=== PATIENT | male | born 1980 | race American Indian/Alaskan Native ===

== ENCOUNTER 2019-05-10 07:40 | Emergency (ER) | payer SELFPAY ==
[2019-05-10 07:46] VITALS: BP 140/84
== END 2019-05-10 09:47 | disposition left against medical advice (07) ==
LOC: ED 07:40
DX: R10.9 Unspecified abdominal pain (principal); Z53.21 Procedure and treatment not carried out due to patient leaving prior to being seen by health care provider

== ENCOUNTER 2019-12-06 07:41 | Emergency (ER) | payer SELFPAY ==
[2019-12-06 07:58] VITALS: BP 153/103
--- NOTE | 2019-12-06 08:30 | Emergency Department Report ---
ED General Adult HPI - General Chief complaint: Dental/Oral Stated complaint: TOP TOOTH PAINFUL Time Seen by Provider: 12/06/19 08:15 Source: patient Mode of arrival: Ambulatory Limitations: No Limitations - History of Present Illness Initial comments: 38-year-old -[place] male patient without past medical history presents with complaints of upper and lower dental pain x 3 days. Patient states pain began after wearing partial dentures. He rates his pain as a 10/10 in severity and states it has been constant and worsening since the onset. He denies any swelling of the face, difficulty swallowing, difficulty opening his jaw, fever, or drooling. He reports he is not currently following with a dental specialist and he had his dentures made at a cosmetic facility. - Related Data Previous Rx's Medication Instructions Recorded Last Taken Type Cyclobenzaprine [Flexeril] 10 mg PO Q8HR PRN #20 tablet 12/14/12 Unknown Rx Ibuprofen [Motrin 800 MG tab] 800 mg PO TID PRN #60 tablet 12/14/12 Unknown Rx HYDROcodone/APAP 5-325 [[place] 1 each PO Q6HR PRN #20 tablet 09/09/14 Unknown Rx 5/325] methOCARBAMOL [Robaxin] 750 mg PO Q8H PRN #21 tablet 09/09/14 Unknown Rx Acetaminophen/Codeine [Tylenol 1 tab PO Q8H PRN #6 tab 12/06/19 Unknown Rx /Codeine # 3 tab] Amoxicillin [Trimox CAP] 500 mg PO Q8H 10 Days #30 capsule 12/06/19 Unknown Rx Ibuprofen [Motrin 800 MG tab] 800 mg PO Q8HR PRN #21 tablet 12/06/19 Unknown Rx Prednisone [predniSONE 5 mg (6-Day 5 mg PO .TAPER #1 tab.ds.pk 12/06/19 Unknown Rx Pack, 21 Tabs)] Allergies Allergy/AdvReac Type Severity Reaction Status Date / Time tramadol Allergy Dizziness Verified 12/14/12 20:38 ED Review of Systems ROS: Stated complaint: TOP TOOTH PAINFUL Other details as noted in HPI Constitutional: denies: chills, diaphoresis, fever, malaise, weakness ENT: dental pain. denies: ear pain, throat pain Respiratory: denies: cough, shortness of breath Gastrointestinal: denies: nausea, vomiting Skin: denies: rash, lesions Neurological: headache. denies: numbness, paresthesias ED Past Medical Hx - Past Medical History Previous Medical History?: No - Surgical History Past Surgical History?: No - Social History Smoking Status: Never Smoker - Medications Home Medications: Home Medications Medication Instructions Recorded Confirmed Last Taken Type Cyclobenzaprine [Flexeril] 10 mg PO Q8HR PRN #20 tablet 12/14/12 Unknown Rx Ibuprofen [Motrin 800 MG tab] 800 mg PO TID PRN #60 tablet 12/14/12 Unknown Rx HYDROcodone/APAP 5-325 [[place] 1 each PO Q6HR PRN #20 tablet 09/09/14 Unknown Rx 5/325] methOCARBAMOL [Robaxin] 750 mg PO Q8H PRN #21 tablet 09/09/14 Unknown Rx Acetaminophen/Codeine [Tylenol 1 tab PO Q8H PRN #6 tab 12/06/19 Unknown Rx /Codeine # 3 tab] Amoxicillin [Trimox CAP] 500 mg PO Q8H 10 Days #30 capsule 12/06/19 Unknown Rx Ibuprofen [Motrin 800 MG tab] 800 mg PO Q8HR PRN #21 tablet 12/06/19 Unknown Rx Prednisone [predniSONE 5 mg (6-Day 5 mg PO .TAPER #1 tab.ds.pk 12/06/19 Unknown Rx Pack, 21 Tabs)] ED Physical Exam - General Limitations: No Limitations General appearance: alert, in no apparent distress, obese - Head Head exam: Present: atraumatic, normocephalic - Eye Eye exam: Present: normal appearance. Absent: scleral icterus - Expanded ENT Exam Expanded Mouth exam: Present: tongue normal. Absent: drooling, trismus, muffled voice Teeth exam: Present: dental caries, fractured tooth # (#8), dental tenderness #, gingival enlargement (There is erythema and mild swelling noted to the upper and lower frontal portions of the gums with mild bleeding noted at the site of the fractured #8 tooth) Throat exam: Negative: tonsillar erythema - Neck Neck exam: Present: full ROM. Absent: lymphadenopathy - Respiratory Respiratory exam: Absent: respiratory distress - Cardiovascular Cardiovascular Exam: Present: regular rate - Neurological Exam Neurological exam: Present: alert, oriented X3, normal gait - Psychiatric Psychiatric exam: Present: normal affect, normal mood - Skin Skin exam: Present: warm, dry, intact, normal color. Absent: rash ED Course Vital Signs 12/06/19 07:50 Pulse Rate 102 H Respiratory 18 Rate Blood Pressure 153/103 O2 Sat by Pulse 96 Oximetry ED Medical Decision Making - Medical Decision Making Patient here with upper and lower gingival pain and swelling after wearing partial dentures. Moderate erythema and swelling noted of the upper and lower gumline with mild bleeding on exam. Areas are very tender to palpation. No abscess or cellulitis/swelling of the face noted. Will treat for dental infection and possible allergic reaction with Amoxil and prednisone. Repeat heart rate noted at 92 bpm. Recommend follow-up with a dental specialist within 24 hours. Patient provided with dental specialist list. His vitals are normal he is well-appearing and stable for discharge home. Strict return precautions were discussed in detail with patient who verbalizes understanding. Critical care attestation.: If time is entered above; I have spent that time in minutes in the direct care of this critically ill patient, excluding procedure time. ED Disposition Clinical Impression: Gingivitis Disposition: DC- TO HOME OR SELFCARE Is pt being admited?: No Condition: Stable Instructions: Gingivitis (ED) Additional Instructions: Please follow-up with a dental specialist from the list provided within 24 hours. Prescriptions: Ibuprofen [Motrin 800 MG tab] 800 mg PO Q8HR PRN #21 tablet PRN Reason: pain Prednisone [predniSONE 5 mg (6-Day Pack, 21 Tabs)] 5 mg PO .TAPER #1 tab.ds.pk Amoxicillin [Trimox CAP] 500 mg PO Q8H 10 Days #30 capsule Acetaminophen/Codeine [Tylenol /Codeine # 3 tab] 1 tab PO Q8H PRN #6 tab PRN Reason: Pain , Severe (7-10) Referrals: PRIMARY CARE,MD [Primary Care Provider] - 3-5 Days
== END 2019-12-06 08:39 | disposition home or self-care (01) ==
LOC: ED 07:41
DX: K05.00 Acute gingivitis, plaque induced (principal); Z79.899 Other long term (current) drug therapy; Z88.6 Allergy status to analgesic agent
CPT/HCPCS: 99281

== ENCOUNTER 2020-04-05 02:34 | Emergency (ER) | payer SELFPAY ==
[2020-04-05 04:13] VITALS: BP 166/101
[2020-04-05 05:14] LABS: Basophils # (Auto) 0.1 K/mm3 (0.0-0.1); Basophils % (Auto) 0.7 % (0.0-1.8); Eosinophils # (Auto) 0.3 K/mm3 (0.0-0.4); Eosinophils % (Auto) 3.4 % (0.0-4.3); Hematocrit 47.2 % (35.5-45.6); Hemoglobin 15.8 gm/dl (11.8-15.2); Lymphocytes # (Auto) 2.3 K/mm3 (1.2-5.4); Lymphocytes % (Auto) 28.7 % (13.4-35.0); Mean Corpuscular HGB Conc 33 % (32-34); Mean Corpuscular Volume 90 fl (84-94); Monocytes # (Auto) 0.4 K/mm3 (0.0-0.8); Monocytes % (Auto) 5.4 % (0.0-7.3); Red Blood Count 5.26 M/mm3 (3.65-5.03); Red Cell Distribution Width 14.1 % (13.2-15.2)
[2020-04-05 05:18] LABS: Bilirubin,Urine NEG (Negative); Blood,Urine NEG (Negative); Color,Urine Straw (Yellow); Mucus,Urine FEW /HPF; Protein,Urine <15 mg/dL mg/dL (Negative); Urobilinogen,Urine < 2.0 mg/dL (<2.0)
[2020-04-05 05:19] LABS: Platelet Count 76 K/mm3 (140-440)
[2020-04-05 05:25] LABS: BUN/Creatinine Ratio 16; Blood Urea Nitrogen 13 mg/dL (9-20); Calcium 8.8 mg/dL (8.4-10.2); Hemolysis Index 57
[2020-04-05 05:26] LABS: RBC,Urine < 1.0 /HPF (0.0-6.0); WBC,Urine < 1.0 /HPF (0.0-6.0)
[2020-04-05] MEDS ORDERED: SODIUM CHLORIDE 0.9% 1000 ML 1,000 ML IV ONE ×2 (05:50)
[2020-04-05] MEDS ORDERED: INSULIN REGULAR, HUMAN 100 UNIT/ML 3ML VIAL IV ONE (07:41)
--- NOTE | 2020-04-05 08:31 | Emergency Department Report ---
ED General Adult HPI - General Chief complaint: Hyperglycemia Stated complaint: HIGH BLOOD SUGAR Time Seen by Provider: 04/05/20 05:50 Source: patient Mode of arrival: Ambulatory Limitations: No Limitations - History of Present Illness Initial comments: This is a 39-year-old male nontoxic, well nourished in appearance, no acute signs of distress presents to the ED with c/o of increased thirst and urination times several days. Patient stated that yesterday his family member checked his blood sugar and was about 300s. Patient otherwise denies any chest pain, shortness of breath, fever, chills, nausea, vomiting, headache, stiff neck, abdominal or pelvic pain. Denies any other urinary symptoms. Patient stated allergies to tramadol. Patient denies any past medical history and stated has never been diagnosed with diabetes. -: days(s) Radiation: non-radiation Severity scale (0 -10): 0 Improves with: none Worsens with: none Associated Symptoms: denies other symptoms. denies: confusion, chest pain, cough, diaphoresis, fever/chills, headaches, loss of appetite, malaise, nausea/vomiting, rash, seizure, shortness of breath, syncope, weakness Treatments Prior to Arrival: none - Related Data Previous Rx's Medication Instructions Recorded Last Taken Type Cyclobenzaprine [Flexeril] 10 mg PO Q8HR PRN #20 tablet 12/14/12 Unknown Rx Ibuprofen [Motrin 800 MG tab] 800 mg PO TID PRN #60 tablet 12/14/12 Unknown Rx HYDROcodone/APAP 5-325 [[place] 1 each PO Q6HR PRN #20 tablet 09/09/14 Unknown Rx 5/325] methOCARBAMOL [Robaxin] 750 mg PO Q8H PRN #21 tablet 09/09/14 Unknown Rx Acetaminophen/Codeine [Tylenol 1 tab PO Q8H PRN #6 tab 12/06/19 Unknown Rx /Codeine # 3 tab] Amoxicillin [Trimox CAP] 500 mg PO Q8H 10 Days #30 capsule 12/06/19 Unknown Rx Ibuprofen [Motrin 800 MG tab] 800 mg PO Q8HR PRN #21 tablet 12/06/19 Unknown Rx Prednisone [predniSONE 5 mg (6-Day 5 mg PO .TAPER #1 tab.ds.pk 12/06/19 Unknown Rx Pack, 21 Tabs)] Blood Sugar Diagnostic [Advanced 1 each MC ONCE #1 box 04/05/20 Unknown Rx Glucose Test Strips] Blood-Glucose Meter [Advanced 1 each ONCE #1 box 04/05/20 Unknown Rx Glucose Meter] metFORMIN [Glucophage] 500 mg PO BID #60 tablet 04/05/20 Unknown Rx Allergies Allergy/AdvReac Type Severity Reaction Status Date / Time tramadol Allergy Dizziness Verified 12/14/12 20:38 ED Review of Systems ROS: Stated complaint: HIGH BLOOD SUGAR Other details as noted in HPI Comment: All other systems reviewed and negative Constitutional: denies: chills, fever Eyes: denies: eye pain, eye discharge, vision change ENT: denies: ear pain, throat pain Respiratory: denies: cough, shortness of breath, wheezing Cardiovascular: denies: chest pain, palpitations Endocrine: no symptoms reported Gastrointestinal: denies: abdominal pain, nausea, diarrhea Genitourinary: denies: urgency, dysuria Musculoskeletal: denies: back pain, joint swelling, arthralgia Skin: denies: rash, lesions Neurological: denies: headache, weakness, paresthesias Psychiatric: denies: anxiety, depression Hematological/Lymphatic: denies: easy bleeding, easy bruising ED Past Medical Hx - Past Medical History Previous Medical History?: Yes Additional medical history: Morbid Obesity - Surgical History Past Surgical History?: No - Social History Smoking Status: Never Smoker Substance Use Type: None - Medications Home Medications: Home Medications Medication Instructions Recorded Confirmed Last Taken Type Cyclobenzaprine [Flexeril] 10 mg PO Q8HR PRN #20 tablet 12/14/12 Unknown Rx Ibuprofen [Motrin 800 MG tab] 800 mg PO TID PRN #60 tablet 12/14/12 Unknown Rx HYDROcodone/APAP 5-325 [[place] 1 each PO Q6HR PRN #20 tablet 09/09/14 Unknown Rx 5/325] methOCARBAMOL [Robaxin] 750 mg PO Q8H PRN #21 tablet 09/09/14 Unknown Rx Acetaminophen/Codeine [Tylenol 1 tab PO Q8H PRN #6 tab 12/06/19 Unknown Rx /Codeine # 3 tab] Amoxicillin [Trimox CAP] 500 mg PO Q8H 10 Days #30 capsule 12/06/19 Unknown Rx Ibuprofen [Motrin 800 MG tab] 800 mg PO Q8HR PRN #21 tablet 12/06/19 Unknown Rx Prednisone [predniSONE 5 mg (6-Day 5 mg PO .TAPER #1 tab.ds.pk 12/06/19 Unknown Rx Pack, 21 Tabs)] Blood Sugar Diagnostic [Advanced 1 each ONCE #1 box 04/05/20 Unknown Rx Glucose Test Strips] Blood-Glucose Meter [Advanced 1 each ONCE #1 box 04/05/20 Unknown Rx Glucose Meter] metFORMIN [Glucophage] 500 mg PO BID #60 tablet 04/05/20 Unknown Rx ED Physical Exam - General Limitations: No Limitations General appearance: alert, in no apparent distress - Head Head exam: Present: atraumatic, normocephalic - Eye Eye exam: Present: normal appearance - Neck Neck exam: Present: normal inspection, full ROM. Absent: tenderness, meningismus, lymphadenopathy - Respiratory Respiratory exam: Absent: respiratory distress - Cardiovascular Cardiovascular Exam: Present: regular rate - GI/Abdominal GI/Abdominal exam: Present: soft, normal bowel sounds. Absent: distended, tenderness, guarding, rebound, rigid, diminished bowel sounds - Extremities Exam Extremities exam: Present: normal inspection, full ROM - Back Exam Back exam: Present: normal inspection, full ROM. Absent: tenderness, CVA tenderness (R), CVA tenderness (L), muscle spasm, paraspinal tenderness, vertebral tenderness, rash noted - Neurological Exam Neurological exam: Present: alert, oriented X3, normal gait - Psychiatric Psychiatric exam: Present: normal affect, normal mood - Skin Skin exam: Present: warm, dry, intact, normal color. Absent: rash ED Course Vital Signs 04/05/20 04:02 Temperature 97.7 F Pulse Rate 101 H Respiratory 14 Rate Blood Pressure 166/101 O2 Sat by Pulse 95 Oximetry - Reevaluation(s) Reevaluation #1: 04/05/20 08:27 Patient is speaking in full sentences with no signs of distress noted. ED Medical Decision Making - Lab Data Result diagrams: 04/05/20 04:30 04/05/20 04:30 Lab Results 04/05/20 04/05/20 04/05/20 Range/Units 04:30 04:30 06:20 WBC 7.9 (4.5-11.0) K/mm3 RBC 5.26 H (3.65-5.03) M/mm3 Hgb 15.8 H (11.8-15.2) gm/dl Hct 47.2 H (35.5-45.6) % MCV 90 (84-94) fl MCH 30 (28-32) pg MCHC 33 (32-34) % RDW 14.1 (13.2-15.2) % Plt Count 76 L (140-440) K/mm3 Lymph % (Auto) 28.7 (13.4-35.0) % [place] % (Auto) 5.4 (0.0-7.3) % Eos % (Auto) 3.4 (0.0-4.3) % Baso % (Auto) 0.7 (0.0-1.8) % Lymph # (Auto) 2.3 (1.2-5.4) K/mm3 Armstrong # (Auto) 0.4 (0.0-0.8) K/mm3 Eos # (Auto) 0.3 (0.0-0.4) K/mm3 Baso # (Auto) 0.1 (0.0-0.1) K/mm3 Seg Neutrophils % 61.8 (40.0-70.0) % Seg Neutrophils # 4.9 (1.8-7.7) K/mm3 VBG pH 7.325 (7.320-7.420) Sodium 133 L (137-145) mmol/L Potassium 4.1 (3.6-5.0) mmol/L Chloride 94.5 L (98-107) mmol/L Carbon Dioxide 25 (22-30) mmol/L Anion Gap 18 mmol/L BUN 13 (9-20) mg/dL Creatinine 0.8 (0.8-1.3) mg/dL Estimated GFR > 60 ml/min BUN/Creatinine Ratio 16 % Glucose 358 H (75-100) mg/dL POC Glucose (70-105) mg/dL Calcium 8.8 (8.4-10.2) mg/dL Urine Color (Yellow) Urine Turbidity (Clear) Urine pH (5.0-7.0) Ur Specific [place] (1.003-1.030) Urine Protein (Negative) mg/dL Urine Glucose (UA) (Negative) mg/dL Urine Ketones (Negative) mg/dL Urine Blood (Negative) Urine Nitrite (Negative) Urine Bilirubin (Negative) Urine Urobilinogen (<2.0) mg/dL Ur Leukocyte Esterase (Negative) Urine WBC (Auto) (0.0-6.0) /HPF Urine RBC (Auto) (0.0-6.0) /HPF U Epithel Cells (Auto) (0-13.0) /HPF Urine Mucus /HPF 04/05/20 04/05/20 04/05/20 Range/Units 07:34 08:51 Unknown WBC (4.5-11.0) K/mm3 RBC (3.65-5.03) M/mm3 Hgb (11.8-15.2) gm/dl Hct (35.5-45.6) % MCV (84-94) fl MCH (28-32) pg MCHC (32-34) % RDW (13.2-15.2) % Plt Count (140-440) K/mm3 Lymph % (Auto) (13.4-35.0) % Armstrong % (Auto) (0.0-7.3) % Eos % (Auto) (0.0-4.3) % Baso % (Auto) (0.0-1.8) % Lymph # (Auto) (1.2-5.4) K/mm3 Armstrong # (Auto) (0.0-0.8) K/mm3 Eos # (Auto) (0.0-0.4) K/mm3 Baso # (Auto) (0.0-0.1) K/mm3 Seg Neutrophils % (40.0-70.0) % Seg Neutrophils # (1.8-7.7) K/mm3 VBG pH (7.320-7.420) Sodium (137-145) mmol/L Potassium (3.6-5.0) mmol/L Chloride (98-107) mmol/L Carbon Dioxide (22-30) mmol/L Anion Gap mmol/L BUN (9-20) mg/dL Creatinine (0.8-1.3) mg/dL Estimated GFR ml/min BUN/Creatinine Ratio % Glucose (75-100) mg/dL POC Glucose 312 H 222 H (70-105) mg/dL Calcium (8.4-10.2) mg/dL Urine Color Straw (Yellow) Urine Turbidity Clear (Clear) Urine pH 6.0 (5.0-7.0) Ur Specific [place] 1.030 (1.003-1.030) Urine Protein <15 mg/dl (Negative) mg/dL Urine Glucose (UA) >=500 (Negative) mg/dL Urine Ketones Neg (Negative) mg/dL Urine Blood Neg (Negative) Urine Nitrite Neg (Negative) Urine Bilirubin Neg (Negative) Urine Urobilinogen < 2.0 (<2.0) mg/dL Ur Leukocyte Esterase Neg (Negative) Urine WBC (Auto) < 1.0 (0.0-6.0) /HPF Urine RBC (Auto) < 1.0 (0.0-6.0) /HPF U Epithel Cells (Auto) 1.0 (0-13.0) /HPF Urine Mucus Few /HPF - Medical Decision Making This is a 39-year-old male that presents with a new onset of diabetes. Patient is stable and was examined by me. Patient received 2 L of normal saline as well as 4 units of insulin and glucose has decreased prior to discharge. I will place patient on Metformin. Patient does not meet DKA criteria. Patient was educated on diabetes control and food management. Patient was instructed to follow-up with a primary care doctor in 3-5 days or if symptoms worsen and continue return to emergency room as soon as possible. At time of discharge, the patient does not seem toxic or ill in appearance. No acute signs of d istress noted. Patient agrees to discharge treatment plan of care. No further questions noted by the patient. Critical care attestation.: If time is entered above; I have spent that time in minutes in the direct care of this critically ill patient, excluding procedure time. ED Disposition Clinical Impression: New onset type 2 diabetes mellitus Disposition: DC-01 TO HOME OR SELFCARE Is pt being admited?: No Does the pt Need Aspirin: No Condition: Stable Instructions: Type 2 Diabetes Mellitus, Diagnosis, Adult, Metformin tablets, Diabetes Mellitus Type 2 in Adults (ED) Additional Instructions: Follow-up with a primary care doctor in 3-5 days or if symptoms worsen and co ntinue return to emergency room as soon as possible. Prescriptions: Blood-Glucose Meter [Advanced Glucose Meter] 1 each MC ONCE #1 box Blood Sugar Diagnostic [Advanced Glucose Test Strips] 1 each MC ONCE #1 box metFORMIN [Glucophage] 500 mg PO BID #60 tablet Referrals: AZAEL MENESES MD [Primary Care Provider] - 3-5 Days JOSELITO SHAW MD [Staff Physician] - 3-5 Days Time of Disposition: 08:31
== END 2020-04-05 09:15 | disposition home or self-care (01) ==
LOC: ED 02:34
DX: E11.9 Type 2 diabetes mellitus without complications (principal); Z79.899 Other long term (current) drug therapy; Z88.8 Allergy status to other drugs, medicaments and biological substances
CPT/HCPCS: 36415; 80048; 81001; 82805; 82962; 85025; 96361; 96374; 99283; J7030; J1815

== ENCOUNTER 2021-04-08 16:28 | Emergency (ER) | payer SELFPAY ==
[2021-04-08] MEDS ORDERED: SODIUM CHLORIDE 0.9% 1000 ML 1,000 ML IV ONE (21:27)
[2021-04-08] MEDS ORDERED: MORPHINE 4 MG/1 ML INJ IM ONE (21:30)
[2021-04-08] MEDS ORDERED: ONDANSETRON 4 MG ODT TAB PO ONE (21:31)
[2021-04-08] MEDS ORDERED: diazePAM 10 MG/2 ML SYRINGE IM ONE (21:31)
[2021-04-08] MEDS ORDERED: MORPHINE 4 MG/1 ML INJ IV ONE (22:45)
[2021-04-08] MEDS ORDERED: diazePAM 10 MG/2 ML SYRINGE IV ONE (22:45)
[2021-04-08] MEDS ORDERED: KETOROLAC 30 MG/1 ML INJ IV ONE (22:46)
--- NOTE | 2021-04-09 00:12 | Cat Scan Report ---
CT ABDOMEN AND PELVIS WITHOUT CONTRAST INDICATION / CLINICAL INFORMATION: possible large incarcerated hernia. TECHNIQUE: Axial CT images were obtained through the abdomen and pelvis without IV contrast. All CT scans at this location are performed using CT dose reduction for ALARA by means of automated exposure control. COMPARISON: None available. FINDINGS: LOWER CHEST: No significant abnormality. AORTA / ARTERIES: No significant abnormality. IVC / VEINS: No significant abnormality. LYMPH NODES: No significant adenopathy. COLON: No significant abnormality. APPENDIX: No significant abnormality. STOMACH / SMALL BOWEL: No significant abnormality. PERITONEUM: No free fluid. No free air. No fluid collection. LIVER: No significant abnormality. GALLBLADDER: No significant abnormality. BILE DUCTS: No significant abnormality. PANCREAS: Mild fatty infiltration of the uncinate process, otherwise unremarkable. SPLEEN: No significant abnormality. ADRENALS: No significant abnormality. RIGHT KIDNEY / URETER: No significant abnormality. LEFT KIDNEY / URETER: No significant abnormality. URINARY BLADDER: No significant abnormality. REPRODUCTIVE ORGANS: No significant abnormality. SKELETAL SYSTEM: No significant abnormality. ADDITIONAL FINDINGS: Fat-containing ventral hernia with a neck measuring 3.9 x 3.4 cm.. IMPRESSION: 1. Fat-containing ventral hernia with a neck measuring up to 3.9 cm. No small bowel obstruction. Signer Name: Derick Rosario DO Signed: 04/09/2021 12:07 AM Workstation Name: [id number]
--- NOTE | 2021-04-09 00:42 | Emergency Department Report ---
ED Abdominal Pain HPI - General Chief Complaint: Abdominal Pain Stated Complaint: ABD PAIN Time Seen by Provider: 04/08/21 21:23 Source: patient Mode of arrival: Ambulatory Limitations: No Limitations - History of Present Illness Initial Comments: Patient is a 40-year-old F [place] male with past medical history of abdominal ventral hernia who is presenting with some increased pain at the hernia site. States it is bulged out and has not gone flat. States he has some mild nausea with the pain. Pain is crampy in nature. Denies any fevers chills. Severity scale (0 -10): 10 - Related Data Previous Rx's Medication Instructions Recorded Last Taken Type Cyclobenzaprine [Flexeril] 10 mg PO Q8HR PRN #20 tablet 12/14/12 Unknown Rx Ibuprofen [Motrin 800 MG tab] 800 mg PO TID PRN #60 tablet 12/14/12 Unknown Rx HYDROcodone/APAP 5-325 [[place] 1 each PO Q6HR PRN #20 tablet 09/09/14 Unknown Rx 5/325] methOCARBAMOL [Robaxin] 750 mg PO Q8H PRN #21 tablet 09/09/14 Unknown Rx Acetaminophen/Codeine [Tylenol 1 tab PO Q8H PRN #6 tab 12/06/19 Unknown Rx /Codeine # 3 tab] Amoxicillin [Trimox CAP] 500 mg PO Q8H 10 Days #30 capsule 12/06/19 Unknown Rx Ibuprofen [Motrin 800 MG tab] 800 mg PO Q8HR PRN #21 tablet 12/06/19 Unknown Rx Prednisone [predniSONE 5 mg (6-Day 5 mg PO .TAPER #1 tab.ds.pk 12/06/19 Unknown Rx Pack, 21 Tabs)] Blood Sugar Diagnostic [Advanced 1 each MC ONCE #1 box 04/05/20 Unknown Rx Glucose Test Strips] Blood-Glucose Meter [Advanced 1 each MC ONCE #1 box 04/05/20 Unknown Rx Glucose Meter] metFORMIN [Glucophage] 500 mg PO BID #60 tablet 04/05/20 Unknown Rx Docusate Sodium [Colace] 100 mg PO BID #30 capsule 04/09/21 Unknown Rx Ketorolac [Toradol] 10 mg PO Q6H PRN #12 tablet 04/09/21 Unknown Rx Ondansetron [Zofran Odt] 4 mg PO Q8HR #10 tab.rapdis 04/09/21 Unknown Rx methOCARBAMOL [Robaxin TAB] 500 mg PO Q6H PRN #14 tablet 04/09/21 Unknown Rx Allergies Allergy/AdvReac Type Severity Reaction Status Date / Time tramadol Allergy Dizziness Verified 04/08/21 22:44 ED Review of Systems ROS: Stated complaint: ABD PAIN Other details as noted in HPI Comment: All other systems reviewed and negative ED Past Medical Hx - Past Medical History Additional medical history: Morbid Obesity - Social History Smoking Status: Never Smoker Substance Use Type: None - Medications Home Medications: Home Medications Medication Instructions Recorded Confirmed Last Taken Type Cyclobenzaprine [Flexeril] 10 mg PO Q8HR PRN #20 tablet 12/14/12 04/08/21 Unknown Rx Ibuprofen [Motrin 800 MG tab] 800 mg PO TID PRN #60 tablet 12/14/12 04/08/21 Unknown Rx HYDROcodone/APAP 5-325 [[place] 1 each PO Q6HR PRN #20 tablet 09/09/14 04/08/21 Unknown Rx 5/325] methOCARBAMOL [Robaxin] 750 mg PO Q8H PRN #21 tablet 09/09/14 04/08/21 Unknown R x Acetaminophen/Codeine [Tylenol 1 tab PO Q8H PRN #6 tab 12/06/19 04/08/21 Unknown Rx /Codeine # 3 tab] Amoxicillin [Trimox CAP] 500 mg PO Q8H 10 Days #30 capsule 12/06/19 04/08/21 Unknown Rx Ibuprofen [Motrin 800 MG tab] 800 mg PO Q8HR PRN #21 tablet 12/06/19 04/08/21 Unknown Rx Prednisone [predniSONE 5 mg (6-Day 5 mg PO .TAPER #1 tab.ds.pk 12/06/19 04/08/21 Unknown Rx Pack, 21 Tabs)] Blood Sugar Diagnostic [Advanced 1 each MC ONCE #1 box 04/05/20 04/08/21 Unknown Rx Glucose Test Strips] Blood-Glucose Meter [Advanced 1 each MC ONCE #1 box 04/05/20 04/08/21 Unknown Rx Glucose Meter] metFORMIN [Glucophage] 500 mg PO BID #60 tablet 04/05/20 04/08/21 Unknown Rx Docusate Sodium [Colace] 100 mg PO BID #30 capsule 04/09/21 Unknown Rx Ketorolac [Toradol] 10 mg PO Q6H PRN #12 tablet 04/09/21 Unknown Rx Ondansetron [Zofran Odt] 4 mg PO Q8HR #10 tab.rapdis 04/09/21 Unknown Rx methOCARBAMOL [Robaxin TAB] 500 mg PO Q6H PRN #14 tablet 04/09/21 Unknown Rx ED Physical Exam - General Limitations: No Limitations General appearance: alert, in no apparent distress - Head Head exam: Present: atraumatic, normocephalic - Eye Eye exam: Present: normal appearance - ENT ENT exam: Present: mucous membranes moist - Neck Neck exam: Present: normal inspection - Respiratory Respiratory exam: Present: normal lung sounds bilaterally. Absent: respiratory distress, wheezes, rales, rhonchi - Cardiovascular Cardiovascular Exam: Present: regular rate, normal rhythm. Absent: systolic murmur, diastolic murmur, rubs, gallop - GI/Abdominal GI/Abdominal exam: Present: soft, tenderness, normal bowel sounds, hernia (Large periumbilical hernia) - Rectal Rectal exam: Present: deferred - Extremities Exam Extremities exam: Present: normal inspection - Back Exam Back exam: Present: normal inspection - Neurological Exam Neurological exam: Present: alert, oriented X3 - Psychiatric Psychiatric exam: Present: normal affect, normal mood - Skin Skin exam: Present: warm, dry, intact, normal color. Absent: rash ED Course Vital Signs 04/08/21 04/08/21 17:39 22:36 Temperature 98.0 F 98.2 F Pulse Rate 95 H 87 Respiratory 18 20 Rate Blood Pressure 143/107 Blood Pressure 156/87 [Left] O2 Sat by Pulse 95 98 Oximetry ED Medical Decision Making - Medical Decision Making First on the patient's hernia and felt some slight movement but the hernia did not seem to be reduced. Patient was given some additional pain medication and muscle relaxant. In the before trying to reduce the hernia any further CT did show the hernia was only fat-containing. Patient given some pain medication and be referred to general surgery. He may have torn some of the muscle more which is allowing large amount of fat to come through Critical care attestation.: If time is entered above; I have spent that time in minutes in the direct care of this critically ill patient, excluding procedure time. ED Disposition Clinical Impression: Ventral hernia Qualifiers: Obstruction and gangrene presence: without obstruction or gangrene Qualified Code(s): K43.9 - Ventral hernia without obstruction or gangrene Disposition: 01 HOME / SELF CARE / HOMELESS Is pt being admited?: No Does the pt Need Aspirin: No Condition: Stable Instructions: Hernia, Adult, [id number] Referrals: EUSEBIO LOU DO [Staff Physician] - 3-5 Days Time of Disposition: 00:45
[2021-04-09 01:29] VITALS: BP 146/90
== END 2021-04-09 01:27 | disposition home or self-care (01) ==
LOC: ED 16:28
DX: K43.9 Ventral hernia without obstruction or gangrene (principal)
CPT/HCPCS: 74176; 96361; 96372; 96374; 96375; 99283; J1885; J2270; J3360; J3490; Q0162